=== PATIENT | female | born 1980 | race Caucasian/White ===

== ENCOUNTER 2016-10-18 13:39 | Emergency (ER) | payer SELFPAY ==
[2016-10-18 20:24] LABS: Basophils % (Auto) 0.6 % (0.0-1.8); Eosinophils % (Auto) 1.1 % (0.0-4.3); Hematocrit 39.2 % (30.3-42.9); Hemoglobin 12.9 gm/dl (10.1-14.3); Mean Corpuscular HGB Conc 33 % (30-34); Mean Corpuscular Hemoglobin 30 pg (28-32); Mean Corpuscular Volume 91 fl (79-97); Platelet Count 305 K/mm3 (140-440); Red Blood Count 4.29 M/mm3 (3.65-5.03)
[2016-10-18 20:40] LABS: Anion Gap 20 mmol/L; BUN/Creatinine Ratio 14.44; Blood Urea Nitrogen 13 mg/dL (7-17); Calcium 9.8 mg/dL (8.4-10.2); Carbon Dioxide 24 mmol/L (22-30); Chloride 103.1 mmol/L (98-107); Glucose 107 mg/dL (65-100); Magnesium 2.2 mg/dL (1.7-2.3); Potassium 3.5 mmol/L (3.6-5.0); Sodium 144 mmol/L (137-145)
[2016-10-18] MEDS: KEPPRA 1,000 MG/NS 0.75% 100ML 1,000 MG/100 ML BAG IV ONE (20:42)
[2016-10-18] MEDS: TORADOL IV ONE (20:42)
[2016-10-18] MEDS: BENADRYL IV ONE (20:42)
[2016-10-18] MEDS: REGLAN IV ONE (20:42)
[2016-10-18 21:15] VITALS: BP 121/81
--- NOTE | 2016-10-18 21:45 | Cat Scan Report ---
FINAL REPORT PROCEDURE: CT HEAD/BRAIN WO CON TECHNIQUE: Computerized tomography of the head was performed without contrast material. HISTORY: Left migraine headache. New onset seizure. COMPARISON: No prior studies are available for comparison. FINDINGS: Skull and scalp: There is a small focal linear defect along the inner table of the medial inferior left frontal bone. This is nonspecific and it's significance is uncertain. However has smooth margins and has a generally nonaggressive appearance and could be an incidental developmental variant. Paranasal sinuses: Normal. Ventricles and subarachnoid spaces: Slightly prominent sulci in the anterior frontal parietal areas bilaterally are likely within range of normal variation.. Cerebrum: No evidence of hemorrhage, acute infarction or mass . Cerebellum and brainstem: No evidence of hemorrhage, acute infarction or mass. Vasculature: Normal. Comments: None. IMPRESSION: 1. Overall negative CT brain without contrast with no CT evidence of intracranial hemorrhage or edema or infarct or shift or distinct acute finding. 2. If there is continued concern brain abnormality or unexplained symptoms, additional diagnostic evaluation such as MRI with and without contrast advised only if clinically indicated.
--- NOTE | 2016-10-18 22:22 | Emergency Department Report ---
ED Seizure HPI - General Chief Complaint: Seizure Stated Complaint: POSSIBLE SEIZURE Time Seen by Provider: 10/18/16 19:49 Source: patient Mode of arrival: Ambulatory Limitations: No Limitations - History of Present Illness Initial Comments: 36-year-old female with a past medical history of chronic migraines presents to the hospital with possible seizure activity yesterday. Patient states this is her third episode in the last 2-3 weeks. Patient has no recollection of event and only knows what happened due to her friend who was present at the time. She was told that her whole body tensed up and was jerking, she is making a clicking and grunting sound, she was foaming at the mouth. She states that she did bite the left side of her mouth (superficial). She denies urinary fecal incontinence. No previous history of seizure reported. EMS came to the scene the patient was not to go to the hospital that time to due lack of insurance Patient denies any recent head injury. She currently complains of left-sided frontal headache that is typical of her migraines. No reports of nausea, vomiting, blurred vision, focal weakness, alcohol abuse, or drug use. Headache pain is rated 7/10 in intensity and throbbing in nature. No aggravating or alleviating factors reported. - Related Data Previous Rx's Medication Instructions Recorded Last Taken Type levETIRAcetam [Keppra TAB] 500 mg PO BID #60 tablet 10/18/16 Unknown Rx Allergies Allergy/AdvReac Type Severity Reaction Status Date / Time aspirin Allergy Unknown Verified 02/26/15 18:46 ED Review of Systems ROS: Stated complaint: POSSIBLE SEIZURE Other details as noted in HPI Comment: All other systems reviewed and negative Other: Constitutional: No fevers chills Eyes: No eye pain visual changes ENT: No ear pain or throat pain Neck: Denies pain Respiratory: Denies cough wheezing shortness of breath Cardiovascular: Denies chest pain, palpitations, syncope GI: Denies abdominal pain, nausea, vomiting, diarrhea : Denies dysuria Musculoskeletal: Denies back pain Skin: Denies rash, lesions, erythema Neurologic: As per HPI Psychiatric: Denies suicidal ideation, hallucinations ED Past Medical Hx - Past Medical History Previous Medical History?: Yes Hx Headaches / Migraines: Yes - Surgical History Past Surgical History?: Yes Additional Surgical History: x 4. left ovary removed. D&C x 2 - Social History Smoking Status: Current Every Day Smoker Substance Use Type: Alcohol, Non Opiate Pain - Medications Home Medications: Home Medications Medication Instructions Recorded Confirmed Last Taken Type levETIRAcetam [Keppra TAB] 500 mg PO BID #60 tablet 10/18/16 Unknown Rx ED Physical Exam - General Limitations: No Limitations - Other Other exam information: General: No limitations, patient is alert in no acute distress Head exam: Atraumatic, normocephalic Eyes exam: Normal appearance ENT: Moist mucous membrane, normal oropharynx Neck exam: Normal inspection, full range of motion Respiratory exam: Clear to auscultation bilateral, no wheezes, rales, crackles Cardiovascular: Normal rate and rhythm, normal heart sounds Abdomen: Soft, nondistended, and nontender, with normal bowel sounds, no rebound, or guarding Extremity: Full range of motion normal inspection no deformity Back: Normal Inspection, full range of motion, no tenderness Neurologic: Alert, oriented x3, cranial nerves intact, no motor or sensory deficit Psychiatric: normal affect, normal mood Skin: Warm, dry, intact ED Course Vital Signs 10/18/16 10/18/16 10/18/16 14:29 20:42 21:14 Temperature 98.4 F 98.3 F Pulse Rate 73 68 Respiratory 20 20 20 Rate Blood Pressure 127/81 Blood Pressure 121/81 [Left] O2 Sat by Pulse 100 99 Oximetry 10/18/16 21:15 Temperature Pulse Rate Respiratory 20 Rate Blood Pressure Blood Pressure [Left] O2 Sat by Pulse 99 Oximetry - Reevaluation(s) Reevaluation #1: 10/18/16 22:20 pt stable in the ed without sz 10/18/16 22:27 Pain improved after Reglan, Benadryl, Toradol and patient received 1 g IV ED Medical Decision Making - Lab Data Result diagrams: 10/18/16 20:10 10/18/16 20:10 Lab Results 10/18/16 10/18/16 10/18/16 Range/Units 20:10 20:10 20:10 WBC 8.0 (4.5-11.0) K/mm3 RBC 4.29 (3.65-5.03) M/mm3 Hgb 12.9 (10.1-14.3) gm/dl Hct 39.2 (30.3-42.9) % MCV 91 (79-97) fl MCH 30 (28-32) pg MCHC 33 (30-34) % RDW 14.0 (13.2-15.2) % Plt Count 305 (140-440) K/mm3 Lymph % (Auto) 35.6 H (13.4-35.0) % Green % (Auto) 6.1 (0.0-7.3) % Eos % (Auto) 1.1 (0.0-4.3) % Baso % (Auto) 0.6 (0.0-1.8) % Lymph # 2.9 (1.2-5.4) K/mm3 Green # 0.5 (0.0-0.8) K/mm3 Eos # 0.1 (0.0-0.4) K/mm3 Baso # 0.1 (0.0-0.1) K/mm3 Seg Neutrophils % 56.6 (40.0-70.0) % Seg Neutrophils # 4.5 (1.8-7.7) K/mm3 Sodium 144 (137-145) mmol/L Potassium 3.5 L (3.6-5.0) mmol/L Chloride 103.1 (98-107) mmol/L Carbon Dioxide 24 (22-30) mmol/L Anion Gap 20 mmol/L BUN 13 (7-17) mg/dL Creatinine 0.9 (0.7-1.2) mg/dL Estimated GFR > 60 ml/min BUN/Creatinine Ratio 14.44 % Glucose 107 H (65-100) mg/dL Calcium 9.8 (8.4-10.2) mg/dL Magnesium 2.2 (1.7-2.3) mg/dL HCG, Qual Negative (Negative) - Medical Decision Making Patient was unable to produce urine during ED stay. 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 She denies any drug use. She was started on Keppra since this is her third episode in the last 2-3 weeks and encouraged follow-up with a neurologist for the workup and evaluation. Patient also read received by mouth potassium for mild hypokalemia - Differential Diagnosis seizure, electrolyte abnormality, intracranial mass Critical Care Time: No Critical care attestation.: If time is entered above; I have spent that time in minutes in the direct care of this critically ill patient, excluding procedure time. ED Disposition Clinical Impression: Seizure-like activity, Migraine headache Disposition: DISCHARGED TO HOME OR SELFCARE Is pt being admited?: No Does the pt Need Aspirin: No Condition: Stable Instructions: Epilepsy (ED) Additional Instructions: Take the medications as prescribed. Use the good Rx car provided to make it medication more affordable. Meds are typically cheapest at [facility]. Follow-up with the neurologist provided and primary care doctor for further workup and evaluation Prescriptions: levETIRAcetam [Keppra TAB] 500 mg PO BID #60 tablet Referrals: DEEPAK RAYA MD [Staff Physician] - 3-5 Days (neurologist) [facility] [Provider Group] - 3-5 Days Time of Disposition: 22:26
[2016-10-18] MEDS: K-DUR PO ONE (23:12)
== END 2016-10-18 23:34 | disposition home or self-care (01) ==
LOC: ED 13:39
DX: R56.9 Unspecified convulsions (principal); G43.909 Migraine, unspecified, not intractable, without status migrainosus; F17.200 Nicotine dependence, unspecified, uncomplicated; Z88.6 Allergy status to analgesic agent
CPT/HCPCS: 36415; 70450; 80048; 83735; 84703; 85025; 96365; 96375; 99284; J1200; J1885; J1953; J2765